=== PATIENT | male | born 1990 | race Caucasian/White ===

== ENCOUNTER 2025-05-18 09:04 | Emergency (ER) | payer MEDICAID ==
[~2025-05-18] VITALS: Ht 172.7 cm; Wt 92.5 kg
[2025-05-18 09:07] VITALS: BP 150/80; PULSE 76; RESP 16; O2SAT 99
--- NOTE | 2025-05-18 09:47 | RADIOLOGY REPORT ---
CLINICAL INDICATION: ANKLE PAIN TECHNIQUE: right DI ANKLE, COMPLETE(3VW MIN) Comparison: none FINDINGS/IMPRESSION: : There is no evidence of acute fracture or dislocation. Soft tissues are unremarkable.
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
[2025-05-18 10:08] VITALS: TEMP 98
== END 2025-05-18 10:17 | disposition home or self-care (01) ==
LOC: ER 09:06
DX: S93.491A Sprain of other ligament of right ankle, initial encounter (principal); X58.XXXA Exposure to other specified factors, initial encounter; Y93.89 Activity, other specified; Y92.89 Other specified places as the place of occurrence of the external cause; Y99.8 Other external cause status
CPT/HCPCS: 73610; 99283